=== PATIENT | female | born 2000 | race African-American/Black ===

== ENCOUNTER 2020-02-29 22:49 | Emergency (ER) | payer OTHER ==
--- NOTE | 2020-02-29 23:12 | EDM.PDOC ---
ED HPI GENERAL MEDICAL PROBLEM - General Chief Complaint: Lower Extremity Injury/Pain Stated Complaint: LT KNEE INURY Time Seen by Provider: 02/29/20 23:01 - History of Present Illness INITIAL COMMENTS - FREE TEXT/NARRATIVE: 19-year-old female presents the emergency room with a left knee injury. This occurred shortly before arrival the patient works at [employer]. The patient was walking on a slippery wet floor slipped and fell her public relations account supervisor found her with her leg in an outstretched position the patient states that she initially fell forward bumping her kneecap on the floor and she thinks her kneecap bounced around a little bit. Patient denies any other injury with this most unfortunate event. Patient is not taking any routine medications she states she has a stomach upset problem with ibuprofen. She absolutely certain she is not . Left Knee Pain Score (Numeric/FACES): 10 - Related Data Allergies Allergy/AdvReac Type Severity Reaction Status Date / Time No Known Allergies Allergy Verified 02/29/20 23:05 Home Meds: Home Meds . [No Known Home Meds] 02/29/20 [History] Review of Systems - Review of Systems Review Of Systems: See Below Constitutional: Reports: No Symptoms Mouth/Throat: Reports: No Symptoms Respiratory: Reports: No Symptoms Cardiovascular: Reports: No Symptoms GI/Abdominal: Reports: No Symptoms ED EXAM, GENERAL - Physical Exam Exam: See Below Exam Limited By: No Limitations General Appearance: Alert, No Apparent Distress Respiratory/Chest: No Respiratory Distress, Lungs Clear, Normal Breath Sounds Cardiovascular: Regular Rate, Rhythm, No Edema, No Murmur Extremities: Other (Examination of her left knee is somewhat complicated because she has a very thick leg. But there is no obvious effusion or ecchymosis noted at this point. LCL and MCL appear to be intact however with distraction maneuvers on both of these she has pain in the anterior knee around the patella the ACL appears to be intact however the patient will not completely relax and she has pain in the anterior portion of the knee. No other abnormalities around the knee identified palpation along the lateral and medial joint lines do not elicit any discomfort posterior knee does not elicit any discomfort with palpation she has discomfort around the patella. Neurovascular status of the extremity is normal) Course - Vital Signs Last Recorded V/S: Last Vital Signs Temp 36.1 C 06/01/20 23:00 Pulse 117 H 02/29/20 23:00 Resp 16 02/29/20 23:00 BP 131/71 02/29/20 23:00 Pulse Ox 95 02/29/20 23:00 - Orders/Labs/Meds Orders: Active Orders 24 hr Category Date Time Status Knee 3V Lt [CR] Stat Exams 02/29/20 23:12 Taken Durable Medical Equipment for Discharge [DME for Oth 03/01/20 00:27 Ordered Discharge] [COMM] Stat - Re-Assessments/Exams Free Text/Narrative Re-Assessment/Exam: 02/29/20 23:53 Examination of the patient's left knee is unremarkable for acute fracture dislocation however x-ray exam is limited because the patient would not flex her knee. I find this somewhat unusual as I can get the patient to flex her knee during my exam. Because of her body habitus getting her in a knee immobilizer skin to be very impractical. We will attempt to ambulate her with the aid of crutches and have her follow-up with her L&I doctor this next week. 03/01/20 00:28 Attempted to use crutches this did not go well I believe there is a lack of motivation. She did better using a walker so we will discharge her with a walker Departure - Departure Time of Disposition: 00:07 Disposition: Home, Self-Care 01 Clinical Impression: Left knee injury, Contusion of left patella - Discharge Information Referrals: PCP,None [Primary Care Provider] - Forms: ED Department Discharge, ED Return to Work/School Form Additional Instructions: Return to the emergency room with any questions problems or worsening symptoms. 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 Tylenol as needed for discomfort. Use the walker at all times until advised by a healthcare professional not to. Sepsis Event Note - Focused Exam Vital Signs: Vital Signs Temp Pulse Resp BP Pulse Ox 02/29/20 23:00 36.1 C 117 H 16 131/71 95 Date Exam was Performed: 03/01/20 Time Exam was Performed: 00:30 - My Orders Last 24 Hours: My Active Orders 02/29/20 23:12 Knee 3V Lt [CR] Stat 03/01/20 00:27 Durable Medical Equipment for Discharge [DME for Discharge] [COMM] Stat - Assessment/Plan Last 24 Hours: My Active Orders 02/29/20 23:12 Knee 3V Lt [CR] Stat 03/01/20 00:27 Durable Medical Equipment for Discharge [DME for Discharge] [COMM] Stat
--- NOTE | 2020-03-01 06:34 | CR ---
Left knee: AP, lateral and sunrise patellar views left knee were obtained. Bony density is seen involving the anterior tibial spine which appears detached. This finding is most likely due to an old avulsion fracture at the attachment of the anterior cruciate ligament. Medial and lateral joint compartments are maintained eye. Patellofemoral joint appears normal. No joint effusion is seen. Impression: 1. Findings compatible with old injury off the anterior tibial spine as described above. 2. No additional abnormality is seen on the left knee exam. Diagnostic code #2 This report was dictated in MDT
== END 2020-03-01 00:39 | disposition home or self-care (01) ==
LOC: JD.ED 22:49
DX: S80.02XA Contusion of left knee, initial encounter (principal); W01.0XXA Fall on same level from slipping, tripping and stumbling without subsequent striking against object, initial encounter; Y92.512 Supermarket, store or market as the place of occurrence of the external cause
CPT/HCPCS: 73562-26-LT; 73562-LT; 99282; 99283-25